=== PATIENT | female | born 1965 | race Caucasian/White ===

== ENCOUNTER 2021-03-27 21:20 | Inpatient (IN) ==
[2021-03-27] MEDS ORDERED: *HR* LORazepam 0.5 MG TABLET PO ONE (21:31)
[2021-03-27] MEDS ORDERED: Potassium Effervescent 25 MEQ TABLET.EFF PO ONE (21:31)
[2021-03-28] MEDS ORDERED: Haloperidol Lactate 5 MG/ML VIAL IM PRN (00:17)
[2021-03-28] MEDS ORDERED: *HR* LORazepam 1 MG TABLET PO PRN (00:17)
[2021-03-28] MEDS ORDERED: Acetaminophen 325 MG TABLET PO PRN (00:17)
[2021-03-28] MEDS ORDERED: *HR* LORazepam 2 MG/ML VIAL IM PRN (00:17)
[2021-03-28] MEDS ORDERED: haloperidoL 5 MG TABLET PO PRN (00:17)
[2021-03-28] MEDS ORDERED: hydrOXYzine pamoate 25 MG CAPSULE PO PRN (01:05)
[2021-03-28] MEDS ORDERED: traZODone 50 MG TABLET PO PRN (01:06)
[2021-03-28] MEDS: Topiramate 100 MG TABLET PO SCH ×2 (09:39→21:42)
[2021-03-28] MEDS: Aspirin Enteric Coated 81 MG Tablet PO SCH (09:40)
[2021-03-28] MEDS: Loratadine 10 MG TABLET PO SCH (09:40)
[2021-03-28] MEDS: lisinopriL 5 MG TABLET PO SCH (09:40)
[2021-03-28] MEDS: Gabapentin 300 MG CAPSULE PO SCH ×3 (09:40→21:44)
[2021-03-28] MEDS: Nicotine 21 MG PATCH.TD24 TD SCH (09:43)
[2021-03-28] MEDS: Fluticasone Propionate Nasal 50 MCG/SPRAY BOTTLE NS SCH (11:35)
[2021-03-28] MEDS: Tiotropium 10 INH DOSE IH SCH (11:36)
[2021-03-28] MEDS ORDERED: Mirtazapine 15 MG TABLET PO SCH (21:00)
[2021-03-28] MEDS: traZODone 50 MG TABLET PO SCH (21:44)
[2021-03-29] MEDS: Fluticasone Propionate Nasal 50 MCG/SPRAY BOTTLE NS SCH (08:33)
[2021-03-29] MEDS: Tiotropium 10 INH DOSE IH SCH (08:34)
[2021-03-29] MEDS: Topiramate 100 MG TABLET PO SCH ×2 (08:35→21:19)
[2021-03-29] MEDS: Aspirin Enteric Coated 81 MG Tablet PO SCH (08:36)
[2021-03-29] MEDS: Nicotine 21 MG PATCH.TD24 TD SCH (08:36)
[2021-03-29] MEDS: lisinopriL 5 MG TABLET PO SCH (08:36)
[2021-03-29] MEDS: Loratadine 10 MG TABLET PO SCH (08:36)
[2021-03-29] MEDS: Gabapentin 300 MG CAPSULE PO SCH ×3 (08:36→21:19)
[2021-03-29] MEDS ORDERED: Paliperidone Palmitate 234 MG/1.5 ML SYRINGE IM SCH (16:45)
[2021-03-29] MEDS: traZODone 50 MG TABLET PO SCH (21:20)
[2021-03-30] MEDS ORDERED: Paliperidone Palmitate 234 MG/1.5 ML SYRINGE IM SCH (09:00)
[2021-03-30 09:16] VITALS: BP 132/92
[2021-03-30] MEDS: Nicotine 21 MG PATCH.TD24 TD SCH (09:44)
[2021-03-30] MEDS: Fluticasone Propionate Nasal 50 MCG/SPRAY BOTTLE NS SCH (09:45)
[2021-03-30] MEDS: Tiotropium 10 INH DOSE IH SCH (09:48)
[2021-03-30] MEDS: Gabapentin 300 MG CAPSULE PO SCH ×2 (09:49→15:06)
[2021-03-30] MEDS: lisinopriL 5 MG TABLET PO SCH (09:51)
[2021-03-30] MEDS: Aspirin Enteric Coated 81 MG Tablet PO SCH (09:51)
[2021-03-30] MEDS: Topiramate 100 MG TABLET PO SCH (09:51)
[2021-03-30] MEDS: Loratadine 10 MG TABLET PO SCH (09:52)
== END 2021-03-30 19:40 | disposition home or self-care (01) | DRG 885 ==
LOC: EMEROOARM 21:20 → 1ANU 03-28 00:01
PROVIDERS: ADMIT Psychiatry & Neurology Forensic Psychiatry; ATTEND Psychiatry & Neurology Forensic Psychiatry

== ENCOUNTER 2021-07-21 23:41 | Inpatient (IN) ==
[2021-07-21] MEDS ORDERED: *HR* Ticagrelor 90 MG TABLET PO STA (23:44)
[2021-07-21] MEDS ORDERED: 0.9 % Sodium Chloride 1,000 ML IVC ONE (23:44)
[2021-07-21] MEDS ORDERED: Heparin 25,000UNIT/250ML 1/2NS 25,000 UNIT/250 ML IV.SOLN IVC SCH (23:45)
[2021-07-21] MEDS ORDERED: *HR* Heparin 10,000 UNIT/10 ML VIAL ONE (23:51)
[2021-07-21] MEDS ORDERED: ISOVUE-370 200 ML INFUS..BTL ONE (23:51)
[2021-07-21] MEDS ORDERED: Heparin 1,000 UNITS/500 mL 500 ML ONE (23:51)
[2021-07-21] MEDS ORDERED: Nitroglycerin 1,000 MCG/5 ML VIAL IV ONE (23:51)
[2021-07-21] MEDS ORDERED: 0.9 % Sodium Chloride 1,000 ML ONE (23:51)
[2021-07-21] MEDS ORDERED: *HR* Heparin 5,000 UNIT/ML VIAL IVP PRN ×2 (23:52)
[2021-07-21] MEDS ORDERED: *HR* Heparin 5,000 UNIT/ML VIAL IVP ONE (23:52)
[2021-07-21] MEDS ORDERED: *HR* Midazolam HCl 2 MG/2 ML VIAL ONE (23:55)
[2021-07-21] MEDS ORDERED: *HR* Atropine Sulfate 1 MG/10 ML SYRINGE ONE (23:55)
[2021-07-21] MEDS ORDERED: *HR* FentaNYL (PF) 100 MCG/2 ML VIAL ONE (23:55)
[2021-07-21] MEDS ORDERED: *HR* Heparin 5,000 UNIT/ML VIAL ONE (23:56)
[2021-07-22 00:13] LABS: Heparin anti-factor XA UFH < 0.04 IU/mL (0.30-0.70)
[2021-07-22 00:14] LABS: INR 1.1
[2021-07-22 00:16] LABS: Basophils % 0.3 %; Eosinophils # 0.1 K/mcL (0.0-0.6); Hematocrit 40.1 % (35.3-44.9); Hemoglobin 13.1 g/dL (11.5-15.4); Immature Granulocytes % 0.5 % (0-4); Lymphocytes # 1.7 K/mcL (0.6-4.6); Lymphocytes % 14.6 %; Mean Corpuscular HGB Conc 32.7 g/dL (31.6-35.5); Mean Corpuscular Hemoglobin 28.2 pg (28.0-33.3); Mean Corpuscular Volume 86.4 fL (83.0-100.0); Mean Platelet Volume 9.7 fL (9.4-12.4); Monocytes # 0.7 K/mcL (0.0-1.3); Monocytes % 6.1 %; Neutrophils # 9.1 K/mcL (1.6-8.9); Platelet Count 217 K/mcL (140-400); Red Blood Count 4.64 M/mcL (3.82-4.97); Red Cell Distribution Width 15.2 % (11.5-14.5); Segmented Neutrophils % 77.5 %; White Blood Count 11.8 K/mcL (4.3-11.1)
[2021-07-22] MEDS ORDERED: *HR* Ticagrelor 90 MG TABLET ONE (00:18)
[2021-07-22 00:21] LABS: BUN/Creatinine Ratio 7 (6-26); Blood Urea Nitrogen 9 mg/dL (6-20); Carbon Dioxide 18 mEq/L (23-29); Chloride 111 mEq/L (98-107); Glucose 183 mg/dL (70-105); Osmolality,Calculated 295 (280-300); Potassium 2.8 mEq/L (3.5-5.1); Sodium 141 mEq/L (136-145); eGFR For African Americans 56 (> 60); eGFR For Non-African Americans 46 (> 60)
[2021-07-22 00:22] LABS: Troponin I < 0.03 ng/mL (< 0.04)
[2021-07-22] MEDS ORDERED: *HR* Heparin 10,000 UNIT/10 ML VIAL ONE (00:27)
[2021-07-22] MEDS ORDERED: ISOVUE-370 200 ML INFUS..BTL ONE (00:36)
[2021-07-22] MEDS ORDERED: 0.9 % Sodium Chloride 1,000 ML ONE (00:37)
[2021-07-22] MEDS ORDERED: *HR* Atropine Sulfate 1 MG/10 ML SYRINGE ONE ×2 (00:46→00:59)
[2021-07-22] MEDS ORDERED: Heparin 1,000 UNITS/500 mL 500 ML ONE (01:00)
[2021-07-22] MEDS ORDERED: Tirofiban 5 MG/100 mL 5 MG/100 ML VIAL IV ONE (01:10)
[2021-07-22] MEDS ORDERED: Perflutren Lipid Microsphere 1.3 ML in 0.9 % Sodium Chloride 8.7 ML IVP PRN (01:31)
[2021-07-22] MEDS ORDERED: Naloxone 0.4 MG/ML INJ IVP PRN (01:31)
[2021-07-22] MEDS: 0.9 % Sodium Chloride 1,000 ML IVC SCH ×2 (02:13→14:43)
[2021-07-22 05:12] LABS: Basophils % 0.3 %; Eosinophils % 0.2 %; Hematocrit 39.7 % (35.3-44.9); Hemoglobin 12.9 g/dL (11.5-15.4); Immature Granulocytes % 0.5 % (0-4); Lymphocytes # 1.6 K/mcL (0.6-4.6); Lymphocytes % 13.1 %; Mean Corpuscular HGB Conc 32.5 g/dL (31.6-35.5); Mean Corpuscular Hemoglobin 28.5 pg (28.0-33.3); Mean Corpuscular Volume 87.6 fL (83.0-100.0); Mean Platelet Volume 9.9 fL (9.4-12.4); Monocytes # 0.6 K/mcL (0.0-1.3); Monocytes % 4.5 %; Neutrophils # 10.2 K/mcL (1.6-8.9); Platelet Count 184 K/mcL (140-400); Red Blood Count 4.53 M/mcL (3.82-4.97); Red Cell Distribution Width 15.3 % (11.5-14.5); Segmented Neutrophils % 81.4 %; White Blood Count 12.5 K/mcL (4.3-11.1)
[2021-07-22 05:35] LABS: Alanine Aminotransferase 17 Units/L (7-52); Albumin 3.5 g/dL (3.5-5.7); Albumin/Globulin Ratio 1.2 (1.1-2.2); Alkaline Phosphatase 74 Units/L (34-104); Aspartate Amino Transferase 17 Units/L (13-39); BUN/Creatinine Ratio 10 (6-26); Bilirubin,Total 0.3 mg/dL (0.3-1.0); Blood Urea Nitrogen 10 mg/dL (6-20); Calcium 8.3 mg/dL (8.6-10.3); Carbon Dioxide 16 mEq/L (23-29); Chloride 115 mEq/L (98-107); Globulin 2.9 g/dL (2.4-3.5); Glucose 120 mg/dL (70-105); Osmolality,Calculated 288 (280-300); Sodium 139 mEq/L (136-145); Total Protein 6.4 g/dL (6.4-8.9); eGFR For African Americans > 60 (> 60); eGFR For Non-African Americans 59 (> 60)
[2021-07-22 06:05] LABS: Estimated Average Glucose 126 mg/dl
[2021-07-22] MEDS: *HR* Ticagrelor 90 MG TABLET PO SCH ×2 (07:17→19:22)
[2021-07-22] MEDS: Aspirin 81 MG TAB.CHEW PO SCH (07:17)
[2021-07-22] MEDS: *HR* Heparin 5,000 UNIT/ML VIAL SQ SCH (18:16)
[2021-07-23] MEDS: 0.9 % Sodium Chloride 1,000 ML IVC SCH (02:07)
[2021-07-23] MEDS: *HR* Heparin 5,000 UNIT/ML VIAL SQ SCH ×2 (05:29→18:18)
[2021-07-23] MEDS: *HR* Ticagrelor 90 MG TABLET PO SCH ×2 (08:28→20:49)
[2021-07-23] MEDS: Aspirin 81 MG TAB.CHEW PO SCH (08:28)
[2021-07-23 08:46] LABS: Basophils % 0.4 %; Eosinophils # 0.1 K/mcL (0.0-0.6); Eosinophils % 1.2 %; Immature Granulocytes % 0.3 % (0-4); Lymphocytes # 1.9 K/mcL (0.6-4.6); Lymphocytes % 20.2 %; Mean Corpuscular HGB Conc 31.6 g/dL (31.6-35.5); Mean Corpuscular Hemoglobin 27.5 pg (28.0-33.3); Mean Corpuscular Volume 87.2 fL (83.0-100.0); Mean Platelet Volume 9.9 fL (9.4-12.4); Monocytes # 0.7 K/mcL (0.0-1.3); Monocytes % 7.4 %; Neutrophils # 6.5 K/mcL (1.6-8.9); Platelet Count 170 K/mcL (140-400); Red Blood Count 4.36 M/mcL (3.82-4.97); Red Cell Distribution Width 15.2 % (11.5-14.5); Segmented Neutrophils % 70.5 %; White Blood Count 9.2 K/mcL (4.3-11.1)
[2021-07-23 09:05] LABS: BUN/Creatinine Ratio 18 (6-26); Blood Urea Nitrogen 17 mg/dL (6-20); Calcium 8.5 mg/dL (8.6-10.3); Carbon Dioxide 17 mEq/L (23-29); Chloride 116 mEq/L (98-107); Glucose 100 mg/dL (70-105); Osmolality,Calculated 294 (280-300); Potassium 3.8 mEq/L (3.5-5.1); Sodium 141 mEq/L (136-145); eGFR For African Americans > 60 (> 60); eGFR For Non-African Americans > 60 (> 60)
[2021-07-23] MEDS ORDERED: Ibuprofen 400 MG TABLET PO PRN ×2 (11:20→11:45)
[2021-07-23] MEDS ORDERED: Isosorbide MONOnitrate (24 HR) 30 MG TAB.ER.24H PO SCH (11:30)
[2021-07-23] MEDS ORDERED: Naloxone 0.4 MG/ML INJ IVP PRN (11:45)
[2021-07-23] MEDS ORDERED: Perflutren Lipid Microsphere 1.3 ML in 0.9 % Sodium Chloride 8.7 ML IVP PRN (11:45)
[2021-07-24 03:06] LABS: Basophils % 0.3 %; Eosinophils # 0.2 K/mcL (0.0-0.6); Eosinophils % 2.5 %; Hematocrit 35.9 % (35.3-44.9); Hemoglobin 11.4 g/dL (11.5-15.4); Immature Granulocytes % 0.4 % (0-4); Lymphocytes # 2.4 K/mcL (0.6-4.6); Lymphocytes % 26.1 %; Mean Corpuscular HGB Conc 31.8 g/dL (31.6-35.5); Mean Corpuscular Hemoglobin 27.5 pg (28.0-33.3); Mean Corpuscular Volume 86.7 fL (83.0-100.0); Mean Platelet Volume 10.1 fL (9.4-12.4); Monocytes # 0.8 K/mcL (0.0-1.3); Monocytes % 8.9 %; Neutrophils # 5.7 K/mcL (1.6-8.9); Platelet Count 176 K/mcL (140-400); Red Blood Count 4.14 M/mcL (3.82-4.97); Red Cell Distribution Width 15.1 % (11.5-14.5); Segmented Neutrophils % 61.8 %; White Blood Count 9.3 K/mcL (4.3-11.1)
[2021-07-24 03:24] LABS: BUN/Creatinine Ratio 19 (6-26); Blood Urea Nitrogen 17 mg/dL (6-20); Calcium 8.8 mg/dL (8.6-10.3); Carbon Dioxide 20 mEq/L (23-29); Chloride 115 mEq/L (98-107); Glucose 114 mg/dL (70-105); Osmolality,Calculated 294 (280-300); Potassium 3.5 mEq/L (3.5-5.1); Sodium 141 mEq/L (136-145); eGFR For African Americans > 60 (> 60); eGFR For Non-African Americans > 60 (> 60)
[2021-07-24 04:16] VITALS: O2SAT 96
[2021-07-24] MEDS: *HR* Heparin 5,000 UNIT/ML VIAL SQ SCH (05:23)
[2021-07-24] MEDS: *HR* Ticagrelor 90 MG TABLET PO SCH (08:16)
[2021-07-24] MEDS ORDERED: Aspirin 81 MG TAB.CHEW PO SCH (09:00)
[2021-07-24] MEDS ORDERED: Isosorbide MONOnitrate (24 HR) 30 MG TAB.ER.24H PO SCH (09:00)
[2021-07-24] MEDS ORDERED: Loratadine 10 MG TABLET PO SCH (09:00)
[2021-07-24] MEDS ORDERED: Ezetimibe [Zetia] 10 MG Tablet PO SCH (09:00)
[2021-07-24 09:08] LABS: Thyroid Stimulating Hormone 5.826 mcIU/mL (0.340-5.600)
[2021-07-24 11:11] VITALS: BP 116/72; TEMP 98.5
[2021-07-24] MEDS ORDERED: FLU Vac QV 21-22 (6Month+)/PF 0.5 ML SYRINGE IM ONE (11:17)
[2021-07-24 12:47] VITALS: PULSE 70
== END 2021-07-24 12:45 | disposition home or self-care (01) | DRG 247 ==
LOC: EMEROOARM 23:41 → ICNU 07-22 00:11 → 2NNU 07-23 18:12
PROVIDERS: ADMIT Internal Medicine; ATTEND Internal Medicine